=== PATIENT | female | born 1980 | race Caucasian/White ===

== ENCOUNTER 2018-02-22 00:29 | Emergency (ER) | payer SELFPAY ==
[~2018-02-22] VITALS: Ht 167.6 cm; Wt 118.0 kg
[2018-02-22] MEDS ORDERED: CLONIDINE 0.1MG TABLET PO ONE (01:30)
[2018-02-22] MEDS ORDERED: ACETAMINOPHEN 500MG TABLET PO ONE (01:30)
[2018-02-22 02:20] VITALS: BP 154/98
== END 2018-02-22 02:20 | disposition home or self-care (01) ==
LOC: ER 00:29
DX: L03.114 Cellulitis of left upper limb (principal); I10 Essential (primary) hypertension; J45.909 Unspecified asthma, uncomplicated
CPT/HCPCS: 99283; Z7610

== ENCOUNTER 2019-06-05 12:35 | Emergency (ER) | payer MEDICAID ==
[~2019-06-05] VITALS: Ht 167.6 cm; Wt 114.0 kg
[2019-06-05] MEDS ORDERED: CLONIDINE 0.2MG TABLET PO ONE (13:30)
[2019-06-05 14:12] LABS: CHLORIDE 95 mEq/L (98-107)
[2019-06-05 14:13] LABS: BASOPHILS % 1.1 % (0.0-2.0); EOSINOPHILS % 2.2 % (0.0-5.0); HEMATOCRIT. 39.9 % (36.0-48.0); HEMOGLOBIN. 13.9 g/dL (12.0-16.0); LYMPHOCYTES % 29.6 % (20.0-50.0); MEAN CORPUSCULAR VOLUME 83.3 fL (81.0-99.0); MEAN PLATELET VOLUME 7.5 fl (7.4-10.4); MONOCYTES % 6.1 % (2.0-8.0); PLATELET 352 x1000/uL (130-400); RED BLOOD CELL COUNT 4.79 mill/uL (4.2-5.4); RED CELL DISTRIBUTION WIDTH 13.4 % (11.6-14.6)
[2019-06-05 14:16] LABS: PARTIAL THROMBOPLASTIN TIME 33.8 sec (23.4-31.0); PROTHROMBIN TIME 10.7 sec (9.6-11.0)
[2019-06-05 14:22] LABS: HCG SCREEN NEGATIVE
[2019-06-05] MEDS ORDERED: POTASSIUM CHLORIDE 20MEQ TABLET SR PO ONE (15:30)
[2019-06-05 20:41] VITALS: BP 140/81
== END 2019-06-05 20:41 | disposition home or self-care (01) ==
LOC: ER 12:35
DX: I10 Essential (primary) hypertension (principal); R20.0 Anesthesia of skin; R51 Headache; J45.909 Unspecified asthma, uncomplicated; E11.9 Type 2 diabetes mellitus without complications; Z98.890 Other specified postprocedural states
CPT/HCPCS: 36415; 71045; 82962; 83880; 84484; 84703; 93005; 99284

== ENCOUNTER 2020-04-12 14:31 | Emergency (ER) | payer MEDICAID ==
[~2020-04-12] VITALS: Ht 167.6 cm; Wt 115.0 kg
[2020-04-12] MEDS ORDERED: SODIUM CHLORIDE 0.9% 1,000 ML IV ONE (16:30)
[2020-04-12 17:16] LABS: BASOPHILS % 0.9 % (0.0-2.0); HEMATOCRIT. 37.3 % (36.0-48.0); HEMOGLOBIN. 12.8 g/dL (12.0-16.0); LYMPHOCYTES % 34.4 % (20.0-50.0); MEAN CORPUSCULAR HEMOGLOBIN 28.4 pg (28.0-32.0); MEAN CORPUSCULAR VOLUME 82.7 fL (81.0-99.0); MEAN PLATELET VOLUME 7.4 fl (7.4-10.4); MONOCYTES % 5.1 % (2.0-8.0); NEUTROPHILS % 55.6 % (40.0-76.0); PLATELET 315 x1000/uL (130-400); RED BLOOD CELL COUNT 4.51 mill/uL (4.2-5.4); RED CELL DISTRIBUTION WIDTH 13.5 % (11.6-14.6)
[2020-04-12 17:21] LABS: CHLORIDE 97 mEq/L (98-107)
[2020-04-12] MEDS ORDERED: POTASSIUM CHLORIDE 20MEQ TABLET SR PO NR (18:15)
[2020-04-12] MEDS ORDERED: SODIUM CHLORIDE 0.9% 1,000 ML IV NR (18:15)
[2020-04-12 19:30] VITALS: BP 141/86
[2020-04-12] MEDS ORDERED: METFORMIN HCL 500MG TABLET PO ONE (19:30)
== END 2020-04-12 21:15 | disposition home or self-care (01) ==
LOC: ER 14:50
DX: E11.65 Type 2 diabetes mellitus with hyperglycemia (principal); I10 Essential (primary) hypertension; E87.6 Hypokalemia; K76.0 Fatty (change of) liver, not elsewhere classified; R74.01 Elevation of levels of liver transaminase levels; E66.9 Obesity, unspecified; Z91.14 Patient's other noncompliance with medication regimen; Z68.41 Body mass index [BMI] 40.0-44.9, adult; Z98.890 Other specified postprocedural states
CPT/HCPCS: 36415; 71045; 76705; 80053; 83690; 85025; 93005; 96360; 96361; 99285; J7030